=== PATIENT | male | born 1960 | race Caucasian/White ===

== ENCOUNTER 2017-06-04 06:01 | Emergency (ER) | payer BC ==
--- NOTE | ~2017-06-04 | CT2 ---
[facility] A Service of [facility] RADIOLOGY TEXT RESULTS PATIENT: GROVER JAEGER LOCATION: SED : 64 UNIT #: [id number] AGE: [address]: Ney Brown MD SEX: M ORDER DR: [id number] [address] [address] [id number] E MR#: [id number] Acc #: [id number] NAME: GROVER JAEGER : 1960 SEX: M STUDY DATE/TIME: 06/04/2017 7:32 UNIT: SED ROOM: STUDY DESCRIPTION: CT Abd and Pelv W Cont Attending Physician: Ney Brown M.D. Ordering Physician: Ney Brown M.D. MEDICAL IMAGING REPORT This report is preliminary unless electronic signature is present. EXAM CT scan of the abdomen and pelvis with contrast 06/04/2017 HISTORY Pain under right ribs, right upper quadrant abdominal pain and tenderness with cramping beginning 1 day ago. No known injury. TECHNIQUE Spiral CT was performed through the abdomen and pelvis following intravenous contrast administration only as per clinician request. This CT exam was performed with one or more of the following radiation dose reduction techniques: Automatic exposure control, adjustment of mA and/or kV according to patient size, and iterative reconstruction. FINDINGS ABDOMEN: Exam is limited by the lack of oral contrast. There is fatty infiltration of the liver. The spleen, pancreas, adrenal glands and kidneys are normal. Question is raised of some minimal stranding in the fat adjacent to the gallbladder. Correlation with gallbladder ultrasound is recommended to exclude cholecystitis. No intra- or extrahepatic biliary ductal dilatation is seen. PELVIS FINDINGS: There is colonic diverticulosis without evidence of diverticulitis. The gut is otherwise unremarkable. No adenopathy is seen and there is no free fluid in the abdomen or pelvis. The lung bases are normal. IMPRESSION 1. Examination is limited by the lack of oral contrast. 2. Fatty infiltration of the liver. 3. Question is raised of some possible minimal stranding in the fat adjacent to the gallbladder. Recommend correlation with gallbladder ultrasound to exclude cholecystitis. [facility] A Service of [facility] RADIOLOGY TEXT RESULTS PATIENT: GROVER JAEGER [place] [facility] [birth year] [place]IT #: [id number] AGE: [address]: Ney Brown MD SEX: M ORDER DR: STAT * RESULT Dictated by... Franklin Akhtar M.D. THIS IS AN ELECTRONICALLY VERIFIED REPORT Franklin Akhtar M.D. at 06/06/2017 8:02 AM ISABELLA/moriah TD: 06/04/2017 08:54 JOB #: [id number] MEDICAL IMAGING REPORT Page 1 of 1
--- NOTE | ~2017-06-04 | US67 ---
[facility] A Service of [facility] RADIOLOGY TEXT RESULTS PATIENT: GROVER JAEGER LOCATION: SED : 64 UNIT #: [id number] AGE: [address]: Ney Brown MD SEX: M ORDER DR: [id number] [address] [address] [id number] E MR#: [id number] Acc #: [id number] NAME: GROVER JAEGER : 1960 SEX: M STUDY DATE/TIME: 06/04/2017 9:40 UNIT: SED ROOM: STUDY DESCRIPTION: Gallbladder Attending Physician: Ney Brown M.D. Ordering Physician: Ney Brown M.D. MEDICAL IMAGING REPORT This report is preliminary unless electronic signature is present. EXAM Gallbladder ultrasound 06/04/2017 HISTORY Right upper quadrant abdominal pain for 1 day with vomiting since last night. FINDINGS Findings the liver is homogeneous in echotexture and demonstrates no cystic or solid mass lesions. The intra- and extrahepatic bile ducts are not dilated. The gallbladder contains a moderate amount of layering sludge. No definite shadowing gallstones were identified. There is no gallbladder wall thickening or pericholecystic fluid. No intra- or extrahepatic biliary ductal dilatation. The common duct measures 3 mm. The pancreas and right kidney are normal. IMPRESSION Moderate amount of layering sludge within the gallbladder lumen. No evidence of cholelithiasis, gallbladder wall thickening, or pericholecystic fluid. No intra or extrahepatic biliary ductal dilatation. Dictated by... Franklin Akhtar M.D. THIS IS AN ELECTRONICALLY VERIFIED REPORT Franklin Akhtar M.D. at 06/06/2017 8:03 AM ISABELLA/moriah TD: 06/04/2017 15:08 JOB #: [id number] [facility] A Service [facility] RADIOLOGY TEXT RESULTS PATIENT: GROVER JAEGER LOCATION: SED : 64 UNIT #: [id number] AGE: [address]: Ney Brown MD SEX: M ORDER DR: MEDICAL IMAGING REPORT Page 1 of 1
[2017-06-04] MEDS ORDERED: NO MEDICATIONS (06:13)
[2017-06-04 06:46] LABS: BASOPHIL% 0.2 % (0-2.5); DIFF IND NO; EOSINOPHIL% 0.1 % (0.0-7.0); HEMATOCRIT 43.7 % (38.0-50.0); HEMOGLOBIN 15.1 gm/dL (13.0-16.0); LYMPHOCYTE# 1.2 X10e3 (1.0-3.5); LYMPHOCYTE% 11.3 % (17.0-45.0); MEAN CELL VOLUME 87.3 FL (83-96); MEAN CORPUSCULAR HEMOGLOBIN 30.1 PG (28-34); MEAN CORPUSCULAR HGB CONC 34.5 g/dL (30-36); MONOCYTE# 0.3 X10e3 (0-1.0); MONOCYTE% 3.3 % (3.0-12.0); NEUTROPHIL# 8.7 X10e3 (1.5-7.1); NEUTROPHIL% 85.1 % (40-75); PLATELET COUNT 168 X10e3 (140-420); RED BLOOD COUNT 5.01 X10e (3.90-5.60); RED CELL DISTRIBUTION WIDTH 12.7 % (11.0-15.5); WHITE BLOOD COUNT 10.2 X10e3 (4.0-10.5)
[2017-06-04 07:06] LABS: INR 1.2; PROTHROMBIN TIME (PATIENT) 13.6 SECONDS (9.5-12.4)
[2017-06-04 07:13] LABS: PARTIAL THROMBOPLASTIN TIME 27.9 SECONDS (25.6-38.1)
[2017-06-04 07:15] LABS: ALBUMIN SERUM 4.7 g/dL (3.5-5.0); ALKALINE PHOSPHATASE 73 U/L (32-92); ALT (SGPT) 34 U/L (10-40); AMYLASE 18 U/L (0-46); AST (SGOT) 24 U/L (10-42); BILIRUBIN,TOTAL 0.7 mg/dL (0.2-2.0); BLOOD UREA NITROGEN 18 mg/dL (9-23); CALCIUM SERUM 9.1 mg/dL (8.4-10.2); CARBON DIOXIDE 26 mmol/L (22-31); CHLORIDE 106 mmol/L (100-111); GLUCOSE FASTING 179 mg/dL (70-110); LIPASE 28 U/L (22-51); POTASSIUM 4.2 mmol/L (3.5-5.1); PROTEIN TOTAL SERUM 7.3 g/dL (6.0-8.3); SODIUM 138 mmol/L (135-145)
[2017-06-04 07:19] LABS: BILIRUBIN, DIRECT <0.1 mg/dL (0.0-0.2); BILIRUBIN,INDIRECT 0.6 mg/dL (0.0-0.9)
[2017-06-04 08:24] LABS: URINE SOURCE CLEAN CATCH
[2017-06-04 08:29] LABS: URINE APPEARANCE CLEAR; URINE BILIRUBIN NEG (NEG); URINE BLOOD NEG (NEG); URINE COLOR YELLOW; URINE KETONE NEG (NEG); URINE LEUKOCYTE ESTERASE NEG (NEG); URINE NITRATE NEG (NEG); URINE PROTEIN NEG (NEG); URINE UROBILINOGEN 0.2 MG/DL (NORM)
[2017-06-04 08:39] LABS: MICRO INDICATED? NO; URINE GLUCOSE 50 MG/DL (NORM)
== END 2017-06-04 10:39 | disposition home or self-care (01) ==
LOC: SED 06:01
PROVIDERS: Emergency Medicine
DX: K80.50 Calculus of bile duct without cholangitis or cholecystitis without obstruction (principal)
CPT/HCPCS: 36415; 74177; 76705; 80048; 80076; 81003; 82150; 83690; 85025; 85610; 85730; 96374; 96375; 99284; J2270; J2405; Q9967